=== PATIENT | male | born 1990 | race Two or more races ===

== ENCOUNTER 2016-09-23 12:00 | Emergency (ER) | payer MEDICAID ==
[~2016-09-23] VITALS: Ht 177.8 cm; Wt 77.0 kg
[~2016-09-23 12:00] MED LIST: TEMA15CA PO
[2016-09-23 12:01] VITALS: BP 120/75
[2016-09-23] MEDS ORDERED: SERT50TA12 PO (12:01)
== END 2016-09-23 13:19 | disposition home or self-care (01) ==
LOC: EMS 12:01
DX: S13.4XXA Sprain of ligaments of cervical spine, initial encounter (principal); V49.88XA Car occupant (driver) (passenger) injured in other specified transport accidents, initial encounter; Y93.89 Activity, other specified; Y92.89 Other specified places as the place of occurrence of the external cause; Y99.8 Other external cause status
CPT/HCPCS: 99281; 99282

== ENCOUNTER 2016-11-13 10:49 | Emergency (ER) | payer MEDICAID ==
[~2016-11-13] VITALS: Ht 167.6 cm; Wt 77.3 kg
[~2016-11-13 10:49] MED LIST changes: +SERT50TA12 PO; -TEMA15CA PO
[2016-11-13] MEDS ORDERED: IBUPROFEN 800 MG TABLET PO ONE (11:00)
[2016-11-13] MEDS ORDERED: OxyCODONE HCL/ACETAMINOPHEN 10-325 MG TABLET PO ONE (11:30)
[2016-11-13 12:03] VITALS: BP 135/81
== END 2016-11-13 12:10 | disposition home or self-care (01) ==
LOC: EMS 10:53
DX: S83.105A Unspecified dislocation of left knee, initial encounter (principal); W19.XXXA Unspecified fall, initial encounter; Y93.22 Activity, ice hockey; Y92.328 Other athletic field as the place of occurrence of the external cause; Y99.8 Other external cause status
CPT/HCPCS: 99284